=== PATIENT | female | born 1985 | race Caucasian/White ===

== ENCOUNTER 2016-09-01 09:15 | Inpatient (IN) | payer MEDICAID ==
[~2016-09-01] VITALS: Ht 167.6 cm; Wt 123.2 kg
[~2016-09-01 09:15] MED LIST: ALBU18HF INH; ALBU8.5H5 INH; BUDE10.2 INH; CARI350T14 PO; FURO20TA3 PO; GUAI600T53 PO; IPRA3AMP NPPB; LEVO500T33 PO; LEVO750T26 PO; METH-356 PO; OXYC-74 PO; PRED20TA PO; PRED5TAB PO
[2016-09-01] MEDS ORDERED: LACTATED RINGERS 1,000 ML IV SCH ×2 (10:17→10:30)
[2016-09-01] MEDS ORDERED: OXYTOCIN 30U/ 0.9% NaCL 500ML 500 ML IV SCH (10:17)
[2016-09-01] MEDS ORDERED: LACTATED RINGERS 1,000 ML IVBOLUS ONE (10:30)
[2016-09-01 10:50] LABS: DAU SCREEN DISCLAIMER
[2016-09-01] MEDS ORDERED: NEWBORN KIT ONE ×2 (10:58→11:19)
[2016-09-01] MEDS ORDERED: PLEASE ENTER HEIGHT AND WEIGHT MC SCH (11:00)
[2016-09-01] MEDS ORDERED: SODIUM CITRATE/CITRIC ACID 30 ML UDC ONE (11:18)
[2016-09-01] MEDS ORDERED: METOCLOPRAMIDE 5 MG/ML, 2ML ONE (11:18)
[2016-09-01] MEDS ORDERED: OXYTOCIN 30U/ 0.9% NaCL 500ML 500 ML ONE (11:19)
[2016-09-01] MEDS ORDERED: METOCLOPRAMIDE 5 MG/ML, 2ML IVPush ONE (11:30)
[2016-09-01] MEDS ORDERED: SODIUM CITRATE/CITRIC ACID 30 ML UDC PO ONE (11:30)
[2016-09-01] MEDS ORDERED: FENTANYL PF 100 MCG/2ML ONE ×2 (13:13→13:54)
[2016-09-01] MEDS: OXYTOCIN 30U/ 0.9% NaCL 500ML 500 ML IV SCH (13:34)
[2016-09-01] MEDS: LACTATED RINGERS 1,000 ML IV SCH ×2 (13:34→14:16)
[2016-09-01] MEDS: FENTANYL PF 100 MCG/2ML IVPush PRN ×4 (14:00→14:56)
[2016-09-01] MEDS ORDERED: METOCLOPRAMIDE 5 MG/ML, 2ML IV PRN (14:00)
[2016-09-01] MEDS ORDERED: ONDANSETRON 2MG/ML, 2ML IV PRN (14:00)
[2016-09-01] MEDS ORDERED: SIMETHICONE 80 MG CHEW TAB PO PRN (14:00)
[2016-09-01] MEDS ORDERED: ACETAMINOPHEN 325 MG TABLET PO PRN (14:00)
[2016-09-01] MEDS ORDERED: CALCIUM CARBONATE 500 MG TAB.CHEW PO PRN (14:00)
[2016-09-01] MEDS ORDERED: OXYcodone 5 MG/5 ML ORAL.SOL UDC ONE (15:10)
[2016-09-01] MEDS ORDERED: OXYcodone 5 MG/5 ML ORAL.SOL UDC PO PRN (15:30)
[2016-09-01] MEDS ORDERED: MORPHINE SULFATE 4 MG/ML, 1ML ONE (15:49)
[2016-09-01] MEDS ORDERED: MORPHINE SULFATE 4 MG/ML, 1ML IVPush PRN ×2 (16:00)
[2016-09-01 16:34] VITALS: BP 125/72
[2016-09-01 17:40] VITALS: BP 129/79
[2016-09-01] MEDS: KETOROLAC 30 MG/1 ML IV SCH (19:16)
[2016-09-01] MEDS: OXYcodone/APAP 5/325MG TABLET PO PRN ×2 (19:16→23:05)
[2016-09-01 20:45] VITALS: BP 122/76
[2016-09-01 23:30] VITALS: BP 102/56
[2016-09-02] MEDS: IBUPROFEN 600 MG TABLET PO PRN ×4 (03:10→21:50)
[2016-09-02] MEDS: OXYcodone/APAP 5/325MG TABLET PO PRN ×4 (03:10→21:50)
[2016-09-02 04:00] VITALS: BP 112/69
[2016-09-02 07:50] VITALS: BP 108/63
[2016-09-02] MEDS: DOCUSATE 100 MG CAPSULE PO PRN ×2 (09:24→21:50)
[2016-09-02] MEDS: PRENATAL VIT/IRON/FA 1 EACH TABLET PO SCH (09:24)
[2016-09-02 12:00] VITALS: BP 123/89
[2016-09-02 16:00] VITALS: BP 108/65
[2016-09-02] MEDS: KETOROLAC 30 MG/1 ML IV SCH (19:00)
[2016-09-02] MEDS: LACTATED RINGERS 1,000 ML IV SCH ×2 (19:34→21:02)
[2016-09-02] MEDS: OXYTOCIN 30U/ 0.9% NaCL 500ML 500 ML IV SCH (19:34)
[2016-09-02 20:00] VITALS: BP 119/72
[2016-09-03] MEDS: KETOROLAC 30 MG/1 ML IV SCH ×2 (01:00→07:00)
[2016-09-03] MEDS: OXYcodone/APAP 5/325MG TABLET PO PRN ×3 (01:48→11:36)
[2016-09-03] MEDS ORDERED: OXYC-302 PO (04:13)
[2016-09-03] MEDS ORDERED: DOCU-30 PO (04:15)
[2016-09-03] MEDS ORDERED: IBUP-1222 PO (04:19)
[2016-09-03] MEDS: LACTATED RINGERS 1,000 ML IV SCH ×2 (05:34)
[2016-09-03] MEDS: OXYTOCIN 30U/ 0.9% NaCL 500ML 500 ML IV SCH (05:34)
[2016-09-03] MEDS: IBUPROFEN 600 MG TABLET PO PRN ×2 (06:02→11:36)
[2016-09-03 07:15] VITALS: BP 122/64
[2016-09-03] MEDS: DOCUSATE 100 MG CAPSULE PO PRN (07:17)
[2016-09-03] MEDS: PRENATAL VIT/IRON/FA 1 EACH TABLET PO SCH (07:17)
[2016-09-03] MEDS ORDERED: FERR-4 PO (08:48)
== END 2016-09-03 15:05 | disposition home or self-care (01) | DRG 765 ==
LOC: LDIP 10:04 → 2NW 16:12
PROVIDERS: ADMIT Obstetrics & Gynecology; ATTEND Obstetrics & Gynecology
PROC: 10D00Z1 Extraction of Products of Conception, Low, Open Approach (ICD-10-PCS; principal; 2016-09-01)
PROC: 0UT70ZZ Resection of Bilateral Fallopian Tubes, Open Approach (ICD-10-PCS; 2016-09-01)
DX: O32.1XX0 Maternal care for breech presentation, not applicable or unspecified (principal); Z68.41 Body mass index [BMI] 40.0-44.9, adult; O99.52 Diseases of the respiratory system complicating childbirth; O99.214 Obesity complicating childbirth; E66.9 Obesity, unspecified; J45.909 Unspecified asthma, uncomplicated; D64.9 Anemia, unspecified; O99.02 Anemia complicating childbirth; Z30.2 Encounter for sterilization; Z3A.39 39 weeks gestation of pregnancy; Z37.0 Single live birth
CPT/HCPCS: 36415; 80307; 85025; 86850; 86900; 88302; J1885; J3010; J2765; J7120

== ENCOUNTER 2016-09-06 12:59 | Inpatient (IN) | payer MEDICAID ==
[2016-09-06] VITALS (12 sets, daily range): BP systolic 115–136; BP diastolic 54–78
[~2016-09-06] VITALS: Ht 167.6 cm; Wt 133.3 kg
[~2016-09-06 12:59] MED LIST changes: +DOCU-30 PO; +FERR-4 PO; +IBUP-1222 PO; +OXYC-302 PO
[2016-09-06] MEDS ORDERED: SODIUM CHLORIDE 0.9% 1,000 ML IV ONE (13:48)
[2016-09-06] MEDS ORDERED: ONDANSETRON 2MG/ML, 2ML ONE (13:57)
[2016-09-06] MEDS ORDERED: HYDROmorphone 1 MG/ML, 1ML ONE (13:57)
[2016-09-06] MEDS ORDERED: HYDROmorphone 1 MG/ML, 1ML IVPush PRN (14:00)
[2016-09-06] MEDS ORDERED: SODIUM CHLORIDE FLUSH 10ML SYR IVF ONE (14:00)
[2016-09-06] MEDS ORDERED: ONDANSETRON 2MG/ML, 2ML IVPush ONE (14:00)
[2016-09-06 14:16] LABS: BLOOD UREA NITROGEN 12 mg/dL (7-18)
[2016-09-06 14:21] LABS: ASPARTATE AMINO TRANSFERASE 19 U/L (15-37)
[2016-09-06] MEDS ORDERED: OMNIPAQUE 350 MG/ML, 100ML BOTTLE ONE (17:54)
[2016-09-06] MEDS: LACTATED RINGERS 1,000 ML IV SCH (18:47)
[2016-09-06] MEDS ORDERED: ONDANSETRON 2MG/ML, 2ML IVPush PRN (19:00)
[2016-09-06] MEDS ORDERED: SODIUM CHLORIDE FLUSH 10ML SYR IVF PRN (19:00)
[2016-09-06] MEDS ORDERED: morphine SULFATE 10 MG/ML, 1ML IVPush PRN (19:00)
[2016-09-06] MEDS: OXYcodone 5 MG/5 ML ORAL.SOL UDC PO PRN (21:08)
[2016-09-07] MEDS: OXYcodone IR 5MG TABLET PO PRN ×3 (01:20→19:40)
[2016-09-07] MEDS: OXYcodone 5 MG/5 ML ORAL.SOL UDC PO PRN (01:52)
[2016-09-07] MEDS: LACTATED RINGERS 1,000 ML IV SCH ×3 (01:53→18:47)
[2016-09-07] MEDS ORDERED: HYDROmorphone 1 MG/ML, 1ML IV PRN (10:00)
[2016-09-07] MEDS: HEPARIN 5,000 UNITS/ML, 1ML SQ SCH ×3 (10:00→23:00)
[2016-09-07] MEDS ORDERED: HYDROmorphone 1 MG/ML, 1ML ONE (12:53)
[2016-09-07] MEDS ORDERED: OXYcodone IR 5MG TABLET ONE ×2 (15:38→19:35)
[2016-09-07] MEDS ORDERED: ACETAMINOPHEN 325 MG TABLET PO ONE (18:58)
[2016-09-07] MEDS ORDERED: ACETAMINOPHEN 325 MG TABLET ONE (19:35)
[2016-09-08] MEDS: OXYcodone IR 5MG TABLET PO PRN ×5 (01:20→22:49)
[2016-09-08] MEDS: LACTATED RINGERS 1,000 ML IV SCH ×3 (02:47→20:23)
[2016-09-08] MEDS ORDERED: OXYcodone IR 5MG TABLET ONE (09:39)
[2016-09-08] MEDS: HEPARIN 5,000 UNITS/ML, 1ML SQ SCH (10:00)
[2016-09-08 12:10] VITALS: BP 131/79
[2016-09-08] MEDS: ACETAMINOPHEN 325 MG TABLET PO PRN (13:00)
[2016-09-08] MEDS ORDERED: ENOXAPARIN 120MG/0.8ML SQ SCH (13:30)
[2016-09-08 16:00] VITALS: BP 119/78
[2016-09-08 20:00] VITALS: BP 113/65
[2016-09-09 00:15] VITALS: BP 120/68
[2016-09-09] MEDS: LACTATED RINGERS 1,000 ML IV SCH ×3 (02:47→17:58)
[2016-09-09] MEDS: OXYcodone IR 5MG TABLET PO PRN ×4 (03:26→21:00)
[2016-09-09 03:32] VITALS: BP 129/78
[2016-09-09] MEDS: ACETAMINOPHEN 325 MG TABLET PO PRN (06:25)
[2016-09-09 07:14] VITALS: BP 129/68
[2016-09-09] MEDS ORDERED: THROMBIN 5,000 UNIT VIAL TP ONE (10:00)
[2016-09-09] MEDS ORDERED: CEFAZOLIN 1,000 MG ONE (11:16)
[2016-09-09] MEDS ORDERED: PROPOFOL 10 MG/ML, 20ML ONE (11:16)
[2016-09-09] MEDS ORDERED: ONDANSETRON 2MG/ML, 2ML ONE (11:16)
[2016-09-09] MEDS ORDERED: DEXAMETHASONE 4 MG/ML, 5ML ONE (11:16)
[2016-09-09] MEDS ORDERED: FENTANYL PF 100 MCG/2ML ONE ×5 (11:21→13:17)
[2016-09-09] MEDS ORDERED: ONDANSETRON 2MG/ML, 2ML IVPush PRN (12:00)
[2016-09-09] MEDS ORDERED: ACETAMINOPHEN 325 MG TABLET PO PRN (12:00)
[2016-09-09] MEDS ORDERED: MIDAZOLAM 1 MG/ML, 2ML IV PRN (12:00)
[2016-09-09] MEDS ORDERED: HYDROmorphone 1 MG/ML, 1ML IV PRN (12:00)
[2016-09-09] MEDS ORDERED: OXYcodone 5 MG/5 ML ORAL.SOL UDC PO PRN (12:00)
[2016-09-09] MEDS: FENTANYL PF 100 MCG/2ML IV PRN ×4 (12:55→13:28)
[2016-09-09] MEDS ORDERED: OXYcodone 5 MG/5 ML ORAL.SOL UDC ONE (13:07)
[2016-09-09] MEDS ORDERED: CEFTRIAXONE PMX 1GM/50ML 50 ML IV SCH (16:00)
[2016-09-09 16:27] VITALS: BP 107/60
[2016-09-09] MEDS: metroNIDAZOLE 500 MG TABLET PO SCH (16:27)
[2016-09-09 20:32] VITALS: BP 115/74
[2016-09-10] MEDS: metroNIDAZOLE 500 MG TABLET PO SCH ×2 (01:03→09:35)
[2016-09-10 01:04] VITALS: BP 120/80
[2016-09-10] MEDS: OXYcodone IR 5MG TABLET PO PRN ×3 (01:05→10:33)
[2016-09-10 04:11] VITALS: BP 108/55
[2016-09-10 06:45] VITALS: BP 104/52
[2016-09-10] MEDS ORDERED: OXYC5TAB2 PO (08:55)
[2016-09-10] MEDS ORDERED: DOCUSATE 100 MG CAPSULE PO SCH (09:00)
[2016-09-10] MEDS ORDERED: CEFDINIR 300 MG CAPSULE PO SCH (09:00)
[2016-09-10] MEDS ORDERED: METR500T PO (10:01)
[2016-09-10] MEDS ORDERED: CEFD300C37 PO (10:04)
[2016-09-10] MEDS ORDERED: ASPI-496 PO ×2 (10:08→10:10)
== END 2016-09-10 10:49 | disposition home or self-care (01) | DRG 769 ==
LOC: ED 17:03 → EDIP 18:32 → 2NW 19:30
PROVIDERS: ADMIT Student in an Organized Health Care Education/Training Program; ATTEND Student in an Organized Health Care Education/Training Program
PROC: 30233N1 Transfusion of Nonautologous Red Blood Cells into Peripheral Vein, Percutaneous Approach (ICD-10-PCS; principal; 2016-09-06)
PROC: 0KCK0ZZ Extirpation of Matter from Right Abdomen Muscle, Open Approach (ICD-10-PCS; 2016-09-09)
PROC: 0KCL0ZZ Extirpation of Matter from Left Abdomen Muscle, Open Approach (ICD-10-PCS; 2016-09-09)
DX: O90.2 Hematoma of obstetric wound (principal); K66.1 Hemoperitoneum; D62 Acute posthemorrhagic anemia; I82.890 Acute embolism and thrombosis of other specified veins; O87.0 Superficial thrombophlebitis in the puerperium; Z68.42 Body mass index [BMI] 45.0-49.9, adult; O99.03 Anemia complicating the puerperium; J45.909 Unspecified asthma, uncomplicated; E66.9 Obesity, unspecified; O86.0 Infection of obstetric surgical wound; O99.215 Obesity complicating the puerperium; O34.211 Maternal care for low transverse scar from previous cesarean delivery
CPT/HCPCS: 36415; 71275; 74000; 74177; 76770; 76857; 80053; 83605; 83690; 83880; 85014; 85025; 85610; 86078; 86850; 86900; 86920; 86923; 87040; 87070; 87075; 87077; 87186; 87205; 93005; 93970; 96361; 96374; 96375; J0690; J0696; J1100; J1170; J1644; J2405; J2704; J3010; Q9967; J7030; J7120; P9016

== ENCOUNTER 2016-09-13 23:52 | Emergency (ER) | payer MEDICAID ==
[~2016-09-13] VITALS: Ht 167.6 cm; Wt 127.0 kg
[~2016-09-13 23:52] MED LIST changes: +ASPI-496 PO; +CEFD300C37 PO; +METR500T PO; +OXYC5TAB2 PO
[2016-09-14 01:17] LABS: BLOOD UREA NITROGEN 10 mg/dL (7-18)
[2016-09-14] MEDS ORDERED: OMNIPAQUE 350 MG/ML, 100ML BOTTLE ONE (02:19)
[2016-09-14 02:26] VITALS: BP 134/66
== END 2016-09-14 03:01 | disposition home or self-care (01) ==
LOC: ED 23:59
DX: O90.2 Hematoma of obstetric wound (principal); J45.909 Unspecified asthma, uncomplicated
CPT/HCPCS: 36415; 74177; 80048; 82040; 85025; 99285; Q9967

== ENCOUNTER 2016-12-08 21:23 | Emergency (ER) | payer MEDICAID ==
[~2016-12-08] VITALS: Ht 167.6 cm; Wt 114.4 kg
[~2016-12-08 21:23] MED LIST changes: +DOCU-131 PO; -DOCU-30 PO; -GUAI600T53 PO; +GUAI600T80 PO; -LEVO500T33 PO; +LEVO500T47 PO; +OXYC-296 PO; -OXYC-74 PO
[2016-12-08] MEDS ORDERED: ALBUTEROL/IPRATROPIUM 2.5MG/0.5MG, 3 ML ONE ×2 (21:57)
[2016-12-08] MEDS: ALBUTEROL/IPRATROPIUM 2.5MG/0.5MG, 3 ML NPPB SCH ×2 (22:02→22:09)
[2016-12-08 22:19] VITALS: BP 121/67
== END 2016-12-08 22:52 | disposition home or self-care (01) ==
LOC: ED 22:37
DX: J45.31 Mild persistent asthma with (acute) exacerbation (principal); F17.200 Nicotine dependence, unspecified, uncomplicated
CPT/HCPCS: 71020; 93005; 94640; 99284; J7512; J7620